=== PATIENT | female | born 1965 | race Asian ===

== ENCOUNTER 2017-07-17 18:27 | Emergency (ER) | payer OTHER ==
[~2017-07-17] VITALS: Ht 160 cm; Wt 62.0 kg
[2017-07-17 18:34] VITALS: BP 136/77
[2017-07-17] MEDS ORDERED: DIPH,PERTUSS(ACELL),TET VAC/PF 0.5 ML IM-VACC ONE ×2 (19:18→19:30)
[2017-07-17] MEDS ORDERED: LIDOCAINE 1%, 20ML SQ ONE (19:30)
[2017-07-17] MEDS ORDERED: LIDOCAINE 1%, 20ML ONE (19:31)
== END 2017-07-17 20:58 | disposition home or self-care (01) ==
LOC: ED 20:12
DX: S61.432A Puncture wound without foreign body of left hand, initial encounter (principal); W31.89XA Contact with other specified machinery, initial encounter; Y93.89 Activity, other specified; Y92.098 Other place in other non-institutional residence as the place of occurrence of the external cause; Y99.8 Other external cause status
CPT/HCPCS: 10120; 90715; 96372